=== PATIENT | female | born 1955 | race African-American/Black ===

== ENCOUNTER 2020-10-16 17:17 | Emergency (ER) | payer MEDICARE, MEDICAID ==
[~2020-10-16] VITALS: Ht 170.2 cm; Wt 113.0 kg
[2020-10-16] MEDS ORDERED: ACETAMINOPHEN 325MG TABLET PO ONE (18:30)
[2020-10-16 19:14] VITALS: BP 135/46
== END 2020-10-16 19:14 | disposition home or self-care (01) ==
LOC: ER 17:17
DX: M16.11 Unilateral primary osteoarthritis, right hip (principal); E11.9 Type 2 diabetes mellitus without complications; G40.909 Epilepsy, unspecified, not intractable, without status epilepticus; Z88.0 Allergy status to penicillin; Z88.5 Allergy status to narcotic agent; Z88.6 Allergy status to analgesic agent; Z91.040 Latex allergy status; Z91.018 Allergy to other foods; Z91.09 Other allergy status, other than to drugs and biological substances
CPT/HCPCS: 73502; 99283

== ENCOUNTER 2022-02-28 12:43 | Emergency (ER) | payer MEDICARE, MEDICAID ==
[~2022-02-28] VITALS: Ht 170.2 cm; Wt 106.0 kg
[2022-02-28 12:46] VITALS: BP 142/89
== END 2022-02-28 22:32 | disposition left against medical advice (07) ==
LOC: ER 12:43
DX: Z53.21 Procedure and treatment not carried out due to patient leaving prior to being seen by health care provider (principal)